=== PATIENT | female | born 1975 | race Caucasian/White ===

== ENCOUNTER 2018-01-23 21:16 | Observation (INO) ==
[2018-01-23 21:21] VITALS: TEMP 97.9
[2018-01-23 23:19] VITALS: O2SAT 100
[2018-01-23] MEDS ORDERED: Sod Chloride 0.9% Inj 1,000 ML IV.SIG ONE (23:24)
[2018-01-23 23:39] LABS: Baso # (Auto) 0.1 th/mm3 (0.0-0.2); Baso % (Auto) 1.7 % (0.0-2.0); Eos # (Auto) 0.1 th/mm3 (0.0-0.4); Eos % (Auto) 1.2 % (0.0-4.0); Hemoglobin 13.1 gm/dL (11.6-15.3); Lymph # (Auto) 1.5 th/mm3 (1.0-4.8); Lymph % (Auto) 22.1 % (9.0-44.0); Mean Corpuscular HGB Conc 33.5 % (32.0-36.0); Mean Corpuscular Hemoglobin 28.9 pg (27.0-34.0); Mean Corpuscular Volume 86.2 fL (80.0-100.0); Mean Platelet Volume 11.2 fL (7.0-11.0); Mono % (Auto) 14.7 % (0.0-8.0); Neut # (Auto) 4.2 th/mm3 (1.8-7.7); Neut % (Auto) 60.3 % (16.0-70.0); Platelet Count 189 th/mm3 (150-450); Red Blood Count 4.53 mil/mm3 (4.00-5.30); White Blood Count 6.9 th/mm3 (4.0-11.0)
[2018-01-23 23:54] LABS: Albumin 4.1 g/dL (3.4-5.0); Anion Gap 5 meq/L (5-15); Aspartate Aminotransferase 16 U/L (15-37); Blood Urea Nitrogen 8 mg/dL (7-18); Carbon Dioxide 27.7 meq/L (21.0-32.0); Chloride 107 meq/L (98-107); Glomerular Filtration Rate 77 mL/min (>89); Glucose,Random 96 mg/dL (74-106); Lipase 132 U/L (73-393); Potassium 3.9 meq/L (3.5-5.1); Sodium 140 meq/L (136-145)
[2018-01-23 23:56] LABS: Alanine Aminotransferase 16 U/L (10-53); Alkaline Phosphatase 65 U/L (45-117); Total Protein 7.4 g/dL (6.4-8.2)
--- NOTE | 2018-01-24 00:02 | ED ---
HPI General Chief complaint: Abdominal Pain Stated complaint: Abd pain Time Seen by Provider: 01/23/18 23:15 Source: patient Limitations: no limitations History of Present Illness HPI narrative: The patient is a 42 year old female who presents to the [facility] emergency department with a history of having a midepigastric abdominal pain that she describes as a contraction-like pain that began 2 days ago. The patient reports that she has never had a pain like this previously. She denies having any recent problems with acid reflux or indigestion. She reports having associated nausea without vomiting. She reports that on Monday at 4 AM she began to have chest pressure associated with this. She reports that that continued for 24 hours and then resolves. She reports that with the chest pressure she did have some shortness of breath with exertion. She reports having dizziness at work. She reports having some diaphoresis. She denies having any radiation of the pain. She denies any prior history of cardiac disease. She denies having any prior history of hypertension, hyperlipidemia, or diabetes mellitus. She denies having any significant family history of heart disease. She denies having any lower extremity edema, calf pain, or erythema. She denies having any prior history of DVT or PE. The patient reports that the abdominal pain comes and goes. She reports that the pain waxes and wanes in severity. She reports that when it peaks it is an 8 out of 10 in severity. She reports that movement exacerbates the pain. She denies any effect with eating or drinking regarding the pain. She reports having a diminished appetite over the last 48 hours. On review of systems otherwise, she denies having any known recent fevers, cough, congestion, neck pain,diarrhea , urinary symptoms, or neurologic symptoms. LMP: 2 weeks ago. Related Data Home Medications Medication Instructions Recorded Confirmed No Known Home Medications 01/23/18 01/23/18 Allergies Allergy/AdvReac Type Severity Reaction Status Date / Time No Known Allergies Allergy Verified 01/23/18 21:21 Review of Systems ROS: all other systems reviewed are negative (Except for that which was mentioned in the HPI.) [facility] Social History Social History Substance History: No History of Abuse Smoking Status: Never smoker How Often Do You Have a Drink Containing Alcohol: Never Recent Travel in [facility] within the Last 8 Weeks: No Recent Out of Country Travel within the Last 8 Weeks: No Immunization History Tetanus Immunization: >5 Years Hx Influenza Vaccine This Season: No Exam Const General: cooperative, no acute distress and well developed Nutritional Appearance: well nourished Orientation: alert, awake and oriented x3 HENMT Head: normocephalic and atraumatic Nose: no nasal discharge and no epistaxis Mouth: moist mucous membranes Throat: posterior oropharynx normal and uvula midline Eyes Sclera: normal sclerae Pupils: PERRL Neck Neck: no meningeal signs, trachea midline and no JVD Resp Effort & Inspection: no use of accessory muscles Auscultation: clear to auscultation bilaterally Cardio Rate: regular rate Rhythm: regular rhythm Heart Sounds: no murmurs GI Inspection: non-distended Palpation: soft, no hepatosplenomegaly, no guarding, not rigid and tender in the epigastrum; not in the LLQ, not in the RLQ, not in the LUQ, not in the RUQ, not at McBurney's point, not suprapubicly, Enriquez's sign negative and with no rebound tenderness Skin General: dry skin (warm) Neuro General: alert and awake Cranial Nerves: other Speech: speech normal Motor: no movement abnormalities noted Extrem General: normal to inspection, no clubbing, no cyanosis and no edema Psych Mood: congruent mood Affect: normal affect Judgment: judgment good Course Initial Documented Vital Signs Temperature 97.9 F 01/23/18 21:19 Pulse Rate 69 01/23/18 21:19 Respiratory Rate 20 01/23/18 21:19 Blood Pressure 144/76 H 01/23/18 21:19 Pulse Oximetry 98 01/23/18 21:19 Last Documented Vital Signs Temperature 97.9 F 01/23/18 21:19 Pulse Rate 56 L 01/24/18 02:00 Respiratory Rate 14 01/24/18 02:00 Blood Pressure 110/61 01/24/18 02:00 Pulse Oximetry 100 01/24/18 02:00 Medical Decision Making MDM Narrative Medical decision making narrative: During the course of the patient's emergency department visit, the patient's history, examination, and differential diagnosis were reviewed with the patient. The patient was placed on a surveillance monitor with oximetry and frequent blood pressure monitoring. The patient had IV access obtained and blood work sent for analysis. Diagnostic evaluation was started regarding this patient's abdominal pain and chest pressure yesterday. The patient was initially provided normal saline IV fluids, Zofran 4 mg IV for nausea, aspirin 324 mg p.o. 1. The patient's diagnostic evaluation is remarkable for a white count of 6.9, platelets 189, monocytes 14.7, hemoglobin 13.1, PT PTT within normal limits, chemistry is remarkable for troponin I that is less than 0.02, GFR 77, C- reactive protein less than 0.29, lipase within normal limits at 132. Urinalysis showed few mucus trace leukocyte esterase, culture not indicated. A chest x-ray showed no acute abnormality, CT scan of the abdomen and pelvis revealed focal wall thickening involving the body of the stomach without a discrete mass. This would suggest gastritis, no free air or free fluid. The patient was given Protonix 40 mg IV. The patient was agreeable with the plan to proceed with admission to the chest pain center for rule out serial cardiac enzyme protocol followed by consideration of stress testing. Medical Screen Exam Complete: Yes Emergency Medical Condition: Yes Differential Diagnosis Differential Diagnosis: Acute coronary syndrome, versus acid reflux, versus gastritis, versus pancreatitis, versus biliary colic, versus acute cholecystitis Medical Records Medical records reviewed: Yes I reviewed the patient's medical records. POC Test Results POC Urine Results: Negative Lab Data Lab results reviewed: Yes I reviewed the patient's lab results. Result diagrams: 01/23/18 23:30 01/23/18 23:30 Lab Results 01/23/18 01/23/18 01/23/18 Range/Units 23:00 23:30 23:30 WBC 6.9 (4.0-11.0) th/mm3 RBC 4.53 (4.00-5.30) mil/mm3 Hgb 13.1 (11.6-15.3) gm/dL Hct 39.0 (35.0-46.0) % MCV 86.2 (80.0-100.0) fL MCH 28.9 (27.0-34.0) pg MCHC 33.5 (32.0-36.0) % RDW 14.0 (11.6-17.2) % Plt Count 189 (150-450) th/mm3 MPV 11.2 H (7.0-11.0) fL Neut % (Auto) 60.3 (16.0-70.0) % Lymph % (Auto) 22.1 (9.0-44.0) % [place] % (Auto) 14.7 H (0.0-8.0) % Eos % (Auto) 1.2 (0.0-4.0) % Baso % (Auto) 1.7 (0.0-2.0) % Neut # (Auto) 4.2 (1.8-7.7) th/mm3 Lymph # (Auto) 1.5 (1.0-4.8) th/mm3 [place] # (Auto) 1.0 H (0.0-0.9) th/mm3 Eos # (Auto) 0.1 (0.0-0.4) th/mm3 Baso # (Auto) 0.1 (0.0-0.2) th/mm3 WBC Differential . Differential Comment Auto diff final PT 10.3 (9.8-11.6) sec INR 1.0 Ratio APTT 26.3 (24.3-30.1) sec Sodium 140 (136-145) meq/L Potassium 3.9 (3.5-5.1) meq/L Chloride 107 (98-107) meq/L Carbon Dioxide 27.7 (21.0-32.0) meq/L Anion Gap 5 (5-15) meq/L BUN 8 (7-18) mg/dL Creatinine 0.81 (0.50-1.00) mg/dL Estimated GFR 77 L (>89) mL/min Random Glucose 96 (74-106) mg/dL Calcium 9.0 (8.5-10.1) mg/dL Total Bilirubin 0.5 (0.2-1.0) mg/dL AST 16 (15-37) U/L ALT 16 (10-53) U/L Alkaline Phosphatase 65 (45-117) U/L Total Creatine Kinase (26-192) U/L Troponin I (0.02-0.05) ng/mL C-Reactive Protein Less than 0.29 (0.00-0.30) mg/dL Total Protein 7.4 (6.4-8.2) g/dL Albumin 4.1 (3.4-5.0) g/dL Lipase 132 (73-393) U/L Urine Color (Yellw/Straw) Urine Clarity (Clear) Urine pH (5.0-8.5) Ur Specific [place] (1.002-1.035) Urine Protein (Neg-Trace) mg/dL Urine Glucose (UA) (Negative) mg/dL Urine Ketones (Negative) mg/dL Urine Occult Blood (Negative) Urine Nitrate (Negative) Urine Bilirubin (Negative) Urine Urobilinogen (Less than 2) mg/dL Ur Leukocyte Esterase (Negative) Urine RBC (0-3) /hpf Urine WBC (0-5) /hpf Ur Squamous Epith Cells (0-5) /hpf Urine Mucus (Occasional) /lpf Micro UA Comment Urine Culture Comments 01/23/18 01/24/18 01/24/18 Range/Units 23:30 00:30 05:20 WBC (4.0-11.0) th/mm3 RBC (4.00-5.30) mil/mm3 Hgb (11.6-15.3) gm/dL Hct (35.0-46.0) % MCV (80.0-100.0) fL MCH (27.0-34.0) pg MCHC (32.0-36.0) % RDW (11.6-17.2) % Plt Count (150-450) th/mm3 MPV (7.0-11.0) fL Neut % (Auto) (16.0-70.0) % Lymph % (Auto) (9.0-44.0) % [place] % (Auto) (0.0-8.0) % Eos % (Auto) (0.0-4.0) % Baso % (Auto) (0.0-2.0) % Neut # (Auto) (1.8-7.7) th/mm3 Lymph # (Auto) (1.0-4.8) th/mm3 [place] # (Auto) (0.0-0.9) th/mm3 Eos # (Auto) (0.0-0.4) th/mm3 Baso # (Auto) (0.0-0.2) th/mm3 WBC Differential Differential Comment PT (9.8-11.6) sec INR Ratio APTT (24.3-30.1) sec Sodium (136-145) meq/L Potassium (3.5-5.1) meq/L Chloride (98-107) meq/L Carbon Dioxide (21.0-32.0) meq/L Anion Gap (5-15) meq/L BUN (7-18) mg/dL Creatinine (0.50-1.00) mg/dL Estimated GFR (>89) mL/min Random Glucose (74-106) mg/dL Calcium (8.5-10.1) mg/dL Total Bilirubin (0.2-1.0) mg/dL AST (15-37) U/L ALT (10-53) U/L Alkaline Phosphatase (45-117) U/L Total Creatine Kinase 51 44 (26-192) U/L Troponin I Less than 0.02 L Less than 0.02 L (0.02-0.05) ng/mL C-Reactive Protein (0.00-0.30) mg/dL Total Protein (6.4-8.2) g/dL Albumin (3.4-5.0) g/dL Lipase (73-393) U/L Urine Color Straw (Yellw/Straw) Urine Clarity Clear (Clear) Urine pH 7.0 (5.0-8.5) Ur Specific [place] 1.008 (1.002-1.035) Urine Protein Negative (Neg-Trace) mg/dL Urine Glucose (UA) Negative (Negative) mg/dL Urine Ketones Negative (Negative) mg/dL Urine Occult Blood Negative (Negative) Urine Nitrate Negative (Negative) Urine Bilirubin Negative (Negative) Urine Urobilinogen Less than 2 (Less than 2) mg/dL Ur Leukocyte Esterase Trace H (Negative) Urine RBC 1 (0-3) /hpf Urine WBC 1 (0-5) /hpf Ur Squamous Epith Cells 2 (0-5) /hpf Urine Mucus Few H (Occasional) /lpf Micro UA Comment Culture not ind Urine Culture Comments Culture not ind Imaging Data Radiologist's impression: Chest X-Ray 01/24/18 02:17 CONCLUSION: Negative examination. Abdomen/Pelvis CT 01/24/18 03:09 CONCLUSION: 1. Focal wall thickening involving the body the stomach without a discrete mass. This would suggest gastritis. No free air or free fluid. ECG Data Attestation: I personally reviewed and interpreted this ECG as follows: Interpretation: The patient had an EKG done on arrival. The patient's EKG reveals a sinus rhythm heart rate of 60, QRS duration is 76 ms, QTC [address] segment elevation. T waves are inverted in V1, V2. Discharge Plan Discharge Disposition Patient Disposition: 30 Still Patient Discharge Details Diagnosis: Chest pain, rule out acute myocardial infarction, Gastritis Physicians Team ED Provider: Deanna Hernandez Primary Care Provider: Primary Care Disha Brothers Attending Provider: Ca Brewster Status ED Status: Admitted Observation Patient
[2018-01-24 00:26] LABS: Creatine Kinase 51 U/L (26-192)
[2018-01-24 00:39] LABS: Activated Partial Thrombo Time 26.3 sec (24.3-30.1); Prothrombin Time 10.3 sec (9.8-11.6)
[2018-01-24 01:25] LABS: Bilirubin,Urine Negative (Negative); Clarity,Urine Clear (Clear); Color,Urine Straw (Yellw/Straw); Glucose,Urine (UA) Negative (Negative); Leukocyte Esterase,Urine Trace (Negative); Mucus,Urine Few /lpf (Occasional); Nitrite,Urine Negative (Negative); Specific Gravity,Urine 1.008 (1.002-1.035); Squamous Epithelial Cell,Urine 2 /hpf (0-5)
[2018-01-24] MEDS ORDERED: Pantoprazole Inj 40 MG Vial IV.PUSH ONE (02:18)
[2018-01-24] MEDS ORDERED: Morphine Inj 4 MG/ML Vial IV.PUSH ONE (03:10)
--- NOTE | 2018-01-24 03:42 | XR ---
EXAM DATE: 01/24/2018 3:02 AM EDT AGE/SEX: 42 years / Female INDICATIONS: Chest pain. CLINICAL DATA: This is the patient's initial encounter. Patient reports that signs and symptoms have been present for 2 days and indicates a pain score of 5/10. MEDICAL/SURGICAL HISTORY: None. None. COMPARISON: No prior exams available for comparison. FINDINGS: A single AP view of the chest demonstrates the lungs to be symmetrically aerated without evidence of mass, infiltrate or effusion. The cardiomediastinal contours are unremarkable. Osseous structures a re intact. CONCLUSION: Negative examination. Electronically signed by: Ever Roberts MD 01/24/2018 3:41 AM EDT
--- NOTE | 2018-01-24 04:21 | CT ---
EXAM DATE: 01/24/2018 4:16 AM EDT AGE/SEX: 42 years / Female INDICATIONS: Epigastric abdominal pain. CLINICAL DATA: This is the patient's initial encounter. Patient reports that signs and symptoms have been present for 2 days and indicates a pain score of 7/10. MEDICAL/SURGICAL HISTORY: None. None. ORAL CONTRAST: No oral contrast ingested. RADIATION DOSE: 5.44 CTDI (mGy) COMPARISON: No prior exams available for comparison. TECHNIQUE: Multiple contiguous axial images were obtained through the abdomen and pelvis following b olus infusion of 90 ml Omnipaque 350 (iohexol) nonionic water-soluble contrast as a single exam dos e. No oral contrast ingested. Using automated exposure control and adjustment of the mA and/or kV ac cording to patient size, radiation dose was kept as low as reasonably achievable to obtain optimal di agnostic quality images. DICOM format image data is available electronically for review and comparis on. FINDINGS: Lower Lungs: The visualized lower lungs are clear. Liver: The liver has a homogeneous density without space-occupying lesion. There is no dilation of th e biliary tree. Gallbladder is unremarkable. Spleen: Homogeneous density without enlargement. Pancreas: Unremarkable without mass or calcification. Kidneys: Normal in size and shape. No evidence of mass or hydronephrosis. Adrenal Glands: Unremarkable. Aorta: The aorta and proximal iliac vessels are grossly unremarkable without aneurysmal dilation. Bowel/Mesentery: The stomach is decompressed. The stomach is thick walled predominantly within the b nicky of the stomach. There is edema within the wall the bowel. No discrete mass observed. The remainin g aspects of the stomach are unremarkable. The bowel loops are grossly unremarkable. The cecum and si gmoid colon have a normal configuration. Abdominal Wall: Intact. Retroperitoneum: No evidence of adenopathy in the retrocrural, para-aortic, or deep pelvic regions. Bladder: Contours are smooth. Reproductive Organs: The uterus is anteverted. No abnormal masses or calcifications seen. Inguinal: The inguinal region is unremarkable without evidence of adenopathy. Bony Structures: Unremarkable. CONCLUSION: 1. Focal wall thickening involving the body the stomach without a discrete mass. This would suggest gastritis. No free air or free fluid. Electronically signed by: Ever oRberts MD 01/24/2018 4:19 AM EDT
[2018-01-24 04:57] VITALS: BP 110/61; PULSE 56; RESP 14
[2018-01-24 06:21] LABS: Creatine Kinase 44 U/L (26-192)
[2018-01-24] MEDS ORDERED: Aluminum/Magnesium/Simethacone Susp 30 ML UDC PO STA (08:09)
--- NOTE | 2018-01-24 08:28 | P.HPCA ---
History of Present Illness Primary Care Physician: No Primary Care Physician Chief Complaint: Abdominal pain History of Present Illness: This is a 42-year-old female that presents to ED via private vehicle with a complaint of having 2 days of a constant abdominal discomfort and she points to epigastric region to indicate the location of the discomfort. States that it is worsened with certain types of movements or when she gets little stressed but improves when she relaxes a bit. Has not found to be truly exertional. She also states that she recently has been having some indigestion. She has tried Tums without relief. Was not complaining of chest discomfort but then after further questioning patient states that on Monday which is 2 days ago she had a tightness in the center of her chest that lasted all day long. Really was not short of breath but states that when the pain was more intense with her chest and the abdominal discomfort that it would essentially take the wind out of her. Denies blood in stool. She has had no. Denies diarrhea or constipation. States she was given morphine in the ED which eventually did seem to help with her abdominal pain. Currently no discomfort. Lifetime non-smoker. Denies alcohol use. Denies family history of CAD. - Diagnosis (1) Chest pain, atypical (2) Gastritis Review of Systems General: Patient denies fevers, chills, and recent travel. HEENT: Patient denies headache, sore throat, difficulty swallowing. Cardiovascular: Has the chest discomfort as mentioned above. Denies sensation of heart beating rapidly or irregularly. No syncope. Denies diaphoresis. Respiratory: Denies shortness of breath or inspirational chest discomfort states that when the discomfort was more intense it would take the wind out of her.. Denies coughing wheezing or hemoptysis. GI: Complains of abdominal discomfort and points to the epigastric region. Patient denies nausea, vomiting, diarrhea, bloody stools. Musculoskeletal: Patient denies joint pain or edema. Denies calf pain or edema. Neurovascular: Patient denies numbness, tingling, weakness in extremities. Denies headache. Endocrine: Denies polyuria and polydipsia. Hematologic: Denies easy bruising. Skin: Denies rash or itching. PMFSH - History History Provided By: Patient - Tobacco History Smoking Status: Never smoker - Alcohol History How Often Do You Have a Drink Containing Alcohol: Never - Substance Use History Substance History: No History of Abuse - Travel History Recent Travel in the [place] Within the Last 8 Weeks: No Recent Travel Out of the Country Within the Last 8 Weeks: No - Immunization History Tetanus Immunization: >5 Years Hx Influenza Vaccine This Season: No Medications and Allergies Active Medications: Active Medications Al Hydrox/Mg Hydrox/Simethicone (Mag-Al Plus Susp Liq) 30 ml PO ONCE STA Stop: 01/24/18 08:10 Pantoprazole Sodium (Protonix) 40 mg PO DAILY JESS Sodium Chloride (Ns Flush) 2 ml IV.FLUSH PRN PRN PRN Reason: FLUSH AFTER USING IV ACCESS Sodium Chloride (Ns Flush) 2 ml IV.FLUSH BID JESS Sodium Chloride (Ns Flush) 2 ml IV.FLUSH PRN PRN PRN Reason: FLUSH AFTER USING IV ACCESS Allergies Allergy/AdvReac Type Severity Reaction Status Date / Time No Known Allergies Allergy Verified 01/23/18 21:21 Home Medications Medication Instructions Recorded Confirmed Type No Known Home Medications 01/23/18 01/23/18 History Exam Vital signs: Vital Signs 01/23/18 21:19 01/23/18 23:18 01/24/18 01:00 Temperature 97.9 F Pulse Rate 69 71 56 L Respiratory Rate 20 16 12 Blood Pressure 144/76 H 130/81 118/71 Pulse Oximetry 98 100 100 01/24/18 02:00 Temperature Pulse Rate 56 L Respiratory Rate 14 Blood Pressure 110/61 Pulse Oximetry 100 Intake & Output 01/23/18 01/24/18 01/24/18 18:59 06:59 18:59 Weight 56.699 kg Other: Date of Last Bowel Movement 01/23/18 Narrative: GENERAL: This is a well-nourished, well-developed patient, in no apparent distress. Patient speaks in clear complete sentences. Patient is pleasant. HEENT: Head is atraumatic and normocephalic. Neck is supple without lymphadenopathy and trachea is midline. No JVD or carotid bruits. CARDIOVASCULAR: Regular rate and rhythm without murmurs, gallops, or rubs. RESPIRATORY: Clear to auscultation. Breath sounds equal bilaterally. No wheezes , rales, or rhonchi. Chest wall is nontender. No use of accessory muscles. GASTROINTESTINAL: Abdomen is nontender, nondistended. Abdomen soft. No obvious pulsatile mass or bruit. No CVA tenderness. Strong femoral pulses bilaterally. Normal bowel sounds in all quadrants. MUSCULOSKELETAL: Patient is moving upper and lower extremities freely. No calf tenderness or edema, no Homans sign. Strong pulses in upper and lower extremities. NEUROLOGICAL: Patient is alert and oriented. Cranial nerves 2-12 are grossly intact. No focal deficits and speech is clear. SKIN: No rash and turgor is normal. Results 01/23/18 23:30 01/23/18 23:30 Cardiac Enzymes 01/23/18 01/23/18 01/24/18 Range/Units 23:30 23:30 05:20 AST 16 (15-37) U/L Troponin I Less than 0.02 L Less than 0.02 L (0.02-0.05) ng/mL Coagulation 01/23/18 Range/Units 23:00 PT 10.3 (9.8-11.6) sec APTT 26.3 (24.3-30.1) sec CBC 01/23/18 Range/Units 23:30 WBC 6.9 (4.0-11.0) th/mm3 RBC 4.53 (4.00-5.30) mil/mm3 Hgb 13.1 (11.6-15.3) gm/dL Hct 39.0 (35.0-46.0) % Plt Count 189 (150-450) th/mm3 Neut # (Auto) 4.2 (1.8-7.7) th/mm3 Lymph # (Auto) 1.5 (1.0-4.8) th/mm3 [place] # (Auto) 1.0 H (0.0-0.9) th/mm3 Eos # (Auto) 0.1 (0.0-0.4) th/mm3 Baso # (Auto) 0.1 (0.0-0.2) th/mm3 Comprehensive Metabolic Panel 01/23/18 Range/Units 23:30 Sodium 140 (136-145) meq/L Potassium 3.9 (3.5-5.1) meq/L Chloride 107 (98-107) meq/L Carbon Dioxide 27.7 (21.0-32.0) meq/L BUN 8 (7-18) mg/dL Creatinine 0.81 (0.50-1.00) mg/dL Calcium 9.0 (8.5-10.1) mg/dL AST 16 (15-37) U/L ALT 16 (10-53) U/L Alkaline Phosphatase 65 (45-117) U/L Total Protein 7.4 (6.4-8.2) g/dL Albumin 4.1 (3.4-5.0) g/dL Intake and Output 01/23/18 01/24/18 01/24/18 22:59 06:59 14:59 Other: Date of Last Bowel Movement 01/23/18 Weight 56.699 kg EKG interpretations - EKG EKG shows: bradycardia (EKGs have been sinus rhythm sinus bradycardia without significant ST segment depressions or elevations.), sinus rhythm Caprini VTE Risk Assessment Caprini VTE Risk Assessment: No/Low Risk (score <= 1) Caprini Risk Assessment Model: Point Value = 1 Point Value = 2 Point Value = 3 Point Value = 5 Age 41-60 Minor surgery BMI > 25 kg/m2 Swollen legs Varicose veins or History of unexplained or recurrent spontaneous Oral contraceptives or hormone replacement Sepsis (< 1 month) Serious lung disease, including pneumonia (< 1 month) Abnormal pulmonary function Acute myocardial infarction Congestive heart failure (< 1 month) History of inflammatory bowel disease Medical patient at bed rest Age 61-74 Arthroscopic surgery Major open surgery (> 45 min) Laparoscopic surgery (> 45 min) Malignancy Confined to bed (> 72 hours) Immobilizing plaster cast Central venous access Age >= 75 History of VTE Family history of VTE Factor V Leiden Prothrombin [id number] Lupus anticoagulant Anticardiolipin antibodies Elevated serum homocysteine Heparin-induced thrombocytopenia Other congenital or acquired thrombophilia Stroke (< 1 month) Elective arthroplasty Hip, pelvis, or leg fracture Acute spinal cord injury (< 1 month) Prophylaxis Regimen: Total Risk Factor Score Risk Level Prophylaxis Regimen 0-1 Low Early ambulation 2 Moderate Order ONE of the following: *Sequential Compression Device (SCD) *Heparin 5000 units SQ BID 3-4 Higher Order ONE of the following medications: *Heparin 5000 units SQ TID *Enoxaparin/Lovenox 40 mg SQ daily (WT < 150 kg, CrCl > 30 mL/min) *Enoxaparin/Lovenox 30 mg SQ daily (WT < 150 kg, CrCl > 10-29 mL/min) *Enoxaparin/Lovenox 30 mg SQ BID (WT < 150 kg, CrCl > 30 mL/min) AND/OR *Sequential Compression Device (SCD) 5 or more Highest Order ONE of the following medications: *Heparin 5000 units SQ TID (Preferred with Epidurals) *Enoxaparin/Lovenox 40 mg SQ daily (WT < 150 kg, CrCl > 30 mL/min) *Enoxaparin/Lovenox 30 mg SQ daily (WT < 150 kg, CrCl > 10-29 mL/min) *Enoxaparin/Lovenox 30 mg SQ BID (WT < 150 kg, CrCl > 30 mL/min) AND *Sequential Compression Device (SCD) Assessment and Plan - Assessment (1) Chest pain, atypical Code(s): R07.89 - Other chest pain Status: Acute (2) Gastritis Code(s): K29.70 - Gastritis, unspecified, without bleeding Status: Acute - Plan * Atypical chest pain: Patient's symptoms seem GI related. She had serial cardiac enzymes and EKGs for ruling out purposes. Her discomfort has resolved. She was seen by Dr. Eldon Jarvis of cardiology in the chest pain center. She will be discharged home at this time with instructions to follow-up with PCP and may need further follow-up with poultry cutter for endoscopy. Return to ED for interval issues. * Gastritis: Patient buys to begin PPI and was given examples of his medications and also advised to take either Zantac or Tagamet for the first few days with the PPI. Also advised that she may need follow-up with poultry cutter if her symptoms persist for possible endoscopy. Patient stable at this time. She is agreeable to this plan. (2) Gastritis Qualifiers: Gastritis type: unspecified gastritis Chronicity: acute Gastritis bleeding: without bleeding Qualified Code(s): K29.00 - Acute gastritis without bleeding
--- NOTE | 2018-01-24 14:26 | ECG ---
Date Performed: 01/24/2018 Time Performed: 05:15:53 PTAGE: 42 years EKG: SINUS BRADYCARDIA BORDERLINE ECG PREVIOUS TRACING : 01/23/2018 23.56 Since previous tracing, no significant change noted DOCTOR: Eldon Jarvis Interpretating Date/Time 01/24/2018 14:24:59
--- NOTE | 2018-01-24 14:26 | ECG ---
Date Performed: 01/23/2018 Time Performed: 23:56:20 PTAGE: 42 years EKG: Sinus rhythm NORMAL ECG NO PREVIOUS TRACING DOCTOR: Eldon Jarvis Interpretating Date/Time 01/24/2018 14:25:24
== END 2018-01-24 09:06 | disposition home or self-care (01) ==
LOC: NEDA 21:16 → NEPE 21:16 → NEDA 01-24 12:59
PROVIDERS: ADMIT Internal Medicine Interventional Cardiology; ATTEND Internal Medicine Interventional Cardiology